=== PATIENT | female | born 1955 | race Two or more races ===

== ENCOUNTER 2018-11-17 10:09 | Outpatient (CLI) | payer OTHER ==
[~2018-11-17 10:09] MED LIST changes: -GLIPIZIDE5 MG PO; -SYNTHROID75 MCG
[2018-11-17] MEDS ORDERED: SYNTHROID75 MCG (12:36)
[2018-11-17] MEDS ORDERED: GLIPIZIDE5 MG PO (12:37)
== END 2018-11-17 12:35 | disposition home or self-care (01) ==
LOC: RAD 10:09
DX: M19.90 Unspecified osteoarthritis, unspecified site (principal)

== ENCOUNTER 2018-11-17 12:09 | Emergency (ER) | payer OTHER ==
[~2018-11-17] VITALS: Ht 167.6 cm; Wt 67.1 kg
[2018-11-17] MEDS ORDERED: SYNTHROID75 MCG (12:36)
[2018-11-17] MEDS ORDERED: GLIPIZIDE5 MG PO (12:37)
== END 2018-11-17 19:09 | disposition home or self-care (01) ==
LOC: ER 12:09
DX: J45.998 Other asthma (principal); J11.1 Influenza due to unidentified influenza virus with other respiratory manifestations

== ENCOUNTER → 2018-11-17 | Outpatient (CLI) | payer OTHER ==
[~2018-11-17] MED LIST: CIPRO500 MG PO; GLIPIZIDE5 MG PO; SYNTHROID75 MCG; TRAMADOL HCL50 MG PO
== END | disposition home or self-care (01) ==
LOC: MAMO-SONO 09:15 → SONOGRAMA 11:02 → MAMO-SONO 11:02
DX: M19.90 Unspecified osteoarthritis, unspecified site (principal)

== ENCOUNTER 2019-02-27 06:46 | Outpatient (CLI) | payer OTHER ==
[~2019-02-27 06:46] MED LIST changes: +GLIPIZIDE5 MG PO; +SYNTHROID75 MCG
== END 2019-02-27 15:00 | disposition home or self-care (01) ==
LOC: LAB 06:46
DX: N39.0 Urinary tract infection, site not specified (principal); M19.90 Unspecified osteoarthritis, unspecified site; D64.89 Other specified anemias; D68.8 Other specified coagulation defects; I10 Essential (primary) hypertension; Z01.818 Encounter for other preprocedural examination

== ENCOUNTER 2019-05-29 13:37 | Inpatient (IN) | payer OTHER ==
[~2019-05-29] VITALS: Ht 167.6 cm; Wt 113.4 kg
[~2019-05-29 13:37] MED LIST changes: -SYNTHROID75 MCG; +SYNTHROID75 MCG PO
[2019-06-20] MEDS ORDERED: ZYRTEC10 M3 PO (08:43)
[2019-06-20] MEDS ORDERED: NAPR500T14 PO (08:43)
[2019-06-20] MEDS ORDERED: CALCIUM 1,0001 EACH PO (08:44)
[2019-06-20] MEDS ORDERED: PROTONIX40 M1 PO (08:44)
[2019-07-02] MEDS ORDERED: CALCIUM 600 WI1 EACH PO (09:43)
== END 2019-07-04 08:45 | disposition home or self-care (01) | DRG 741 ==
LOC: SURG 06-28 07:00 → O/R 07-02 06:37 → OB/GYN 07-02 06:37
PROVIDERS: ADMIT Obstetrics & Gynecology Gynecologic Oncology
PROC: 0UT7FZZ Resection of Bilateral Fallopian Tubes, Via Natural or Artificial Opening With Percutaneous Endoscopic Assistance (ICD-10-PCS; 2019-07-02)
PROC: 0UT2FZZ Resection of Bilateral Ovaries, Via Natural or Artificial Opening With Percutaneous Endoscopic Assistance (ICD-10-PCS; 2019-07-02)
PROC: 0UT9FZZ Resection of Uterus, Via Natural or Artificial Opening With Percutaneous Endoscopic Assistance (ICD-10-PCS; principal; 2019-07-02 09:45)
DX: C54.1 Malignant neoplasm of endometrium (principal)

== ENCOUNTER 2019-10-11 07:47 | Outpatient (CLI) | payer OTHER ==
[~2019-10-11 07:47] MED LIST changes: +CALCIUM 1,0001 EACH PO; +CALCIUM 600 WI1 EACH PO; +NAPR500T14 PO; +PROTONIX40 M1 PO; +ZYRTEC10 M3 PO
== END 2019-10-11 15:00 | disposition home or self-care (01) ==
LOC: RAD 07:47 → LAB 07:47
PROVIDERS: ATTEND Radiology Radiation Oncology
DX: Z01.818 Encounter for other preprocedural examination (principal); C54.1 Malignant neoplasm of endometrium; N39.0 Urinary tract infection, site not specified; B96.29 Other Escherichia coli [E. coli] as the cause of diseases classified elsewhere; Z01.810 Encounter for preprocedural cardiovascular examination

== ENCOUNTER → 2019-10-26 09:08 | Outpatient (CLI) | payer OTHER | END | disposition home or self-care (01) | LOC: LAB 09:08 | PROVIDERS: ATTEND Internal Medicine Cardiovascular Disease | DX: N39.0 Urinary tract infection, site not specified (principal); D68.8 Other specified coagulation defects ==

== ENCOUNTER 2020-05-06 08:19 | Outpatient (CLI) | payer OTHER | END 2020-05-06 08:30 | disposition home or self-care (01) | LOC: NUCLEAR 08:19 | DX: C54.1 Malignant neoplasm of endometrium (principal); R97.8 Other abnormal tumor markers | CPT/HCPCS: 78815; A9552 ==

== ENCOUNTER 2021-06-03 12:09 | Outpatient (CLI) | payer OTHER | END 2021-06-03 12:15 | disposition home or self-care (01) | LOC: LAB 12:09 | DX: C54.1 Malignant neoplasm of endometrium (principal) ==

== ENCOUNTER 2021-06-03 12:34 | Outpatient (CLI) | payer OTHER | END 2021-06-03 12:36 | disposition home or self-care (01) | LOC: RAD 12:34 | PROVIDERS: ATTEND Physical Medicine & Rehabilitation | DX: M51.37 Other intervertebral disc degeneration, lumbosacral region (principal); M25.78 Osteophyte, vertebrae; M54.59 Other low back pain ==

== ENCOUNTER 2021-06-15 09:05 | Outpatient (CLI) | payer OTHER | END 2021-06-15 09:08 | disposition home or self-care (01) | LOC: TOM 09:05 | DX: C54.1 Malignant neoplasm of endometrium (principal); N13.39 Other hydronephrosis; K62.89 Other specified diseases of anus and rectum | CPT/HCPCS: 74177; Q9965 ==

== ENCOUNTER 2021-10-10 21:23 | Emergency (ER) | payer OTHER ==
[~2021-10-10] VITALS: Ht 167.6 cm; Wt 91.6 kg
[2021-10-10] MEDS ORDERED: AVENTYL HCL25 MG PO (21:52)
[2021-10-10] MEDS ORDERED: DULOXETINE HCL60 MG PO (21:53)
[2021-10-10] MEDS ORDERED: FAMOTIDINE20 MG PO (21:53)
[2021-10-10] MEDS ORDERED: RAYOS1 MG (21:53)
[2021-10-10] MEDS ORDERED: METFORMIN HCL500 M4 PO (21:53)
[2021-10-10] MEDS ORDERED: ROSUVASTATIN CA10 MG PO (21:54)
[2021-10-10] MEDS ORDERED: CYMBALTA60 MG PO (21:55)
== END 2021-10-11 00:05 | disposition home or self-care (01) ==
LOC: ER 21:23
DX: S52.501A Unspecified fracture of the lower end of right radius, initial encounter for closed fracture (principal); W18.30XA Fall on same level, unspecified, initial encounter; Y93.9 Activity, unspecified; Y92.018 Other place in single-family (private) house as the place of occurrence of the external cause; Y99.9 Unspecified external cause status

== ENCOUNTER 2021-10-15 15:26 | Outpatient (CLI) | payer OTHER ==
[~2021-10-15 15:26] MED LIST changes: +AVENTYL HCL25 MG PO; +CYMBALTA60 MG PO; +DULOXETINE HCL60 MG PO; +FAMOTIDINE20 MG PO; +METFORMIN HCL500 M4 PO; +RAYOS1 MG; +ROSUVASTATIN CA10 MG PO
== END 2021-10-15 15:32 | disposition home or self-care (01) ==
LOC: RAD 15:26
PROVIDERS: ATTEND Orthopaedic Surgery
DX: S52.531A Colles' fracture of right radius, initial encounter for closed fracture (principal)

== ENCOUNTER 2021-10-26 10:18 | Outpatient (CLI) | payer OTHER | END 2021-10-26 10:27 | disposition home or self-care (01) | LOC: RAD 10:18 | PROVIDERS: ATTEND Orthopaedic Surgery | DX: S52.531A Colles' fracture of right radius, initial encounter for closed fracture (principal) ==

== ENCOUNTER 2021-11-10 08:45 | Outpatient (CLI) | payer OTHER | END 2021-11-10 08:54 | disposition home or self-care (01) | LOC: RAD 08:45 | PROVIDERS: ATTEND Orthopaedic Surgery | DX: S52.531A Colles' fracture of right radius, initial encounter for closed fracture (principal) ==

== ENCOUNTER 2021-11-10 11:50 | Outpatient (CLI) | payer OTHER | END 2021-11-10 11:52 | disposition home or self-care (01) | LOC: LAB 11:50 | PROVIDERS: ATTEND Internal Medicine Rheumatology | DX: M33.12 Other dermatomyositis with myopathy (principal); I10 Essential (primary) hypertension ==

== ENCOUNTER 2022-01-17 13:22 | Emergency (ER) | payer OTHER ==
[~2022-01-17] VITALS: Ht 167.6 cm; Wt 78.0 kg
[2022-01-17] MEDS ORDERED: LENVIMA PO (13:49)
[2022-01-17] MEDS ORDERED: NEURONTIN300 MG PO (13:50)
== END 2022-01-17 21:01 | disposition home or self-care (01) ==
LOC: ER 13:22
DX: K92.1 Melena (principal)